=== PATIENT | male | born 1990 | race Hispanic/Latino ===

== ENCOUNTER 2020-09-10 13:10 | Emergency (ER) | payer OTHER ==
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
[2020-09-10 20:09] VITALS: BP 136/99; TEMP 98.3; O2SAT 99
== END 2020-09-10 15:54 | disposition home or self-care (01) ==
LOC: ER 13:10
DX: S02.641A Fracture of ramus of right mandible, initial encounter for closed fracture (principal); S02.85XA Fracture of orbit, unspecified, initial encounter for closed fracture; W22.8XXA Striking against or struck by other objects, initial encounter; Y93.9 Activity, unspecified; Y92.89 Other specified places as the place of occurrence of the external cause; Y99.8 Other external cause status
CPT/HCPCS: 70450; 70486; 72125; 76377; 99283